=== PATIENT | female | born 1985 | race Caucasian/White ===

== ENCOUNTER 2019-05-29 15:38 | Inpatient (IN) | payer BC, MEDICAID, OTHER ==
[~2019-05-29] VITALS: Ht 167.6 cm; Wt 77.1 kg
[2019-05-29 16:20] LABS: BASOPHILS % (AUTO) 1.9 % (0.0-5.0); EOSINOPHILS % (AUTO) 0.5 % (0.0-8.0); LYMPHOCYTES % (AUTO) 20.5 % (21.0-51.0); MEAN CORPUSCULAR HEMOGLOBIN 18.6 pg (27.0-33.0); MEAN CORPUSCULAR HGB CONC 29.3 g/dL (32.0-36.0); MEAN CORPUSCULAR VOLUME 63.4 fL (79-99); MONOCYTES % (AUTO) 7.1 % (3.0-13.0); NUCLEATED RED BLOOD CELLS 0.2 % (0.0-0.19); PLATELET COUNT (AUTO) 371 K/uL (130-400); RED BLOOD CELL COUNT(AUTO) 2.17 MIL/uL (4.00-5.50); WHITE BLOOD COUNT (AUTO) 9.8 K/uL (4.8-10.8)
[2019-05-29 16:22] LABS: APPEARANCE,URINE Clear (CLEAR); BILIRUBIN,URINE Negative (NEGATIVE); COLOR,URINE Yellow (YELLOW); GLUCOSE, URINE (UA) Negative (NEGATIVE); KETONES,URINE Negative (NEGATIVE); LEUKOCYTE ESTERASE ,URINE Negative (NEGATIVE); NITRATE,URINE Negative (NEGATIVE); OCCULT BLOOD,URINE Large (NEGATIVE); PH,URINE 6.5 (5.0-8.0); PROTEIN,URINE Negative (NEGATIVE); UROBILINOGEN,URINE 0.2 mg/dL (0.2-1.0)
[2019-05-29 16:37] LABS: HEMATOCRIT 13.8 % (36-48); POTASSIUM 3.7 mmol/L (3.5-5.1)
[2019-05-29 16:42] LABS: ALBUMIN 3.8 g/dL (3.5-5.0); BILIRUBIN,TOTAL 0.5 mg/dL (0.2-1.0); TOTAL PROTEIN, SERUM 6.9 g/dL (6.0-8.3)
[2019-05-29 16:52] LABS: BACTERIA,URINE Rare /HPF (None Seen); RBC,URINE 26-50 /HPF (0-1); SQUAMOUS EPITHELIAL CELL,UR Rare /HPF (0-2); WBC,URINE 0-1 /HPF (0-1)
[2019-05-29] MEDS ORDERED: ONDANSETRON HCL 4 MG/2 ML VIAL IVP PRN (19:30)
[2019-05-29] MEDS ORDERED: ACETAMINOPHEN 325 MG TAB PO PRN (19:30)
[2019-05-29] MEDS ORDERED: SODIUM CHLORIDE 0.9% 10 ML VIAL IVP PRN (19:30)
[2019-05-29 19:50] VITALS: BP 146/74
[2019-05-29] MEDS ORDERED: ZOLP10TA2 PO (20:29)
[2019-05-29] MEDS ORDERED: BUPR300T53 PO (20:30)
[2019-05-30] VITALS: BP 130/70
[2019-05-30 04:00] VITALS: BP 131/80
[2019-05-30 06:03] LABS: MEAN CORPUSCULAR HEMOGLOBIN 22.7 pg (27.0-33.0); MEAN CORPUSCULAR HGB CONC 31.5 g/dL (32.0-36.0); MEAN CORPUSCULAR VOLUME 71.9 fL (79-99); NUCLEATED RED BLOOD CELLS 0.2 % (0.0-0.19); PLATELET COUNT (AUTO) 243 K/uL (130-400); RED BLOOD CELL COUNT(AUTO) 2.65 MIL/uL (4.00-5.50); RED CELL DISTRIBUTION WIDTH 25.3 % (11.0-15.5); WHITE BLOOD COUNT (AUTO) 7.1 K/uL (4.8-10.8)
[2019-05-30 06:14] LABS: HEMATOCRIT 19.1 % (36-48)
[2019-05-30 06:23] LABS: BILIRUBIN,TOTAL 0.7 mg/dL (0.2-1.0); CREATININE 0.8 mg/dL (0.5-1.5); PHOSPHORUS 3.6 mg/dL (2.5-4.9); POTASSIUM 4.1 mmol/L (3.5-5.1); TOTAL PROTEIN, SERUM 5.6 g/dL (6.0-8.3)
[2019-05-30 08:00] VITALS: BP 129/84
--- NOTE | 2019-05-30 08:50 | NUR ---
Pretransfusion vitals T99.5, R18, HR70, BP 127/86. Patient explained order for packed red blood cells. Patient reports no reactions to first two units. Educated on possible allergic reactions and to report if any present. Patient verbalized understanding. Blood began transfusing at 70 mL/hour. Patient shows no signs of distress, shortness of breath, abdominal or back pain, rash. Rate changed to 125 mL/hr. Bed low locked. call gore within reach. Mother at bedside.
--- NOTE | 2019-05-30 08:55 | NUR ---
No signs of distress, sob, pain or rash. Patient denies feeling unwell. T98.0, R18, BP134/88, HR81.
--- NOTE | 2019-05-30 09:10 | NUR ---
Denies feeling unwell, sob, pain, rash. T98.6, R18, HR76, BP123/87. Transfusion of PRBC at 125 mL/hr.
[2019-05-30 12:00] VITALS: BP 129/74
[2019-05-30 13:33] LABS: INR 0.95 (0.85-1.15); PARTIAL THROMBOPLASTIN TIME 22.3 SEC (26.3-35.5); PROTHROMBIN TIME 9.8 SEC (9.6-11.6)
--- NOTE | 2019-05-30 13:49 | NUR ---
DC PLAN PER PATIENT, SHE IS INDEPENDENT, LIVES WITH HER SON, NO PROVIDER, NO EQUIPMENT, AND FEELS SAFE TO RETURN HOME. Addendum: 05/30/19 at 1350 by JENNIFER DUFF RN CM Amended: Links added.
[2019-05-30 16:00] VITALS: BP 132/84
--- NOTE | 2019-05-30 16:09 | NUR ---
Called Dr. Thorne on mobile after attempt to reach by pager. Per Dr. Thorne, stated patient was followed outpatient with Dr. Rausch, and that he should be consulted. REceived permission to change consult order from Erendira Muñoz NP for [facility] to Dr. Rausch. Notified Dr. Rausch and he stated he would check records as may be unassigned patient or drop in. Office called back to say patient was unassigned and would need to be seen by consulted physician. Notified Erendira Muñoz NP, stated to call Dr. Thorne regarding consult.
--- NOTE | 2019-05-30 16:31 | NUR ---
Per Dr. Thorne, keep NPO for possible D&C 05/31/19. Received order for control 135 mg, PO Q8h. Notified Erendira Muñoz NP.
[2019-05-30] MEDS: PHYTONADIONE 10 MG/1 ML AMP IM SCH (18:21)
[2019-05-30] MEDS ORDERED: PHARMACY COMMUNICATION MISC SCH (19:45)
[2019-05-30 20:00] VITALS: BP 140/93
[2019-05-30] MEDS: NORETHINDRONE-ETHINYL ESTRAD 1 TABLET PO SCH (20:00)
--- NOTE | 2019-05-30 21:00 | NUR ---
paged Dr. Thorne OBGYN about patient's need to speak with somebody about dilation and curretage that he was going to do on 05/31/19. Had patient speak with him on the phone. Patient claims doctor is rude and refuses to take control necon and dilation and curretage procedure. refusal for treatment signed. Bandar Padilla also called and made aware of the situation.
--- NOTE | 2019-05-30 21:00 | NUR ---
mine engineering supervisor Chana called and made aware of patient wanting another OBGYN doctor who will practice the Dilation and Curratage for her. Top Taper Machine explained that patient needs to find her own SEISMIC PLOTTER doctor who will practice the D&C. Will find a list of doctors and give to the patient.
[2019-05-31] VITALS (21 sets, daily range): BP systolic 119–148; BP diastolic 66–93
[2019-05-31 00:46] LABS: HEMATOCRIT 21.9 % (36-48)
--- NOTE | 2019-05-31 02:18 | NUR ---
gave patient a list of OBGYN's that work in this hospital and their office numbers. explained that she has to obtain her own OBGYN doctor and appointment as per clerical warehouseman order ms. ramos. patient verbalizes that she will speak with her primary MD which is Doctor Farr about the situation.
[2019-05-31] MEDS: NORETHINDRONE-ETHINYL ESTRAD 1 TABLET PO SCH ×2 (04:00→19:26)
[2019-05-31 05:09] LABS: BASOPHILS % (AUTO) 1.8 % (0.0-5.0); EOSINOPHILS % (AUTO) 1.8 % (0.0-8.0); HEMATOCRIT 21.9 % (36-48); LYMPHOCYTES % (AUTO) 26.6 % (21.0-51.0); MEAN CORPUSCULAR HEMOGLOBIN 23.4 pg (27.0-33.0); MEAN CORPUSCULAR VOLUME 73.3 fL (79-99); MONOCYTES % (AUTO) 9.1 % (3.0-13.0); NEUTROPHILS % (AUTO) 60.7 % (40.0-77.0); NUCLEATED RED BLOOD CELLS 0.2 % (0.0-0.19); PLATELET COUNT (AUTO) 224 K/uL (130-400); RED BLOOD CELL COUNT(AUTO) 2.99 MIL/uL (4.00-5.50)
[2019-05-31 05:45] LABS: CREATININE 0.8 mg/dL (0.5-1.5); POTASSIUM 3.9 mmol/L (3.5-5.1)
--- NOTE | 2019-05-31 05:55 | NUR ---
paged [facility] Bandar Marshall about patient's Hemoglobin 7.0 and Hematocrit 21.9. He did not give any new orders.
[2019-05-31 06:13] LABS: % IRON SATURATION 3.9 % (22-44)
[2019-05-31 06:59] LABS: HEMATOCRIT 22.4 % (36-48)
--- NOTE | 2019-05-31 09:56 | NUR ---
Per Phyllis Shannon RN [facility], patient had reservations regarding taking control and possible D&C for 05/31/[address] Thorne explain treatment plan. Nurse called Dr. Thorne, explaining patient's concerns, physician spoke with patient over phone and hung up on patient. Patient stated she did not want him on her case and stated she would contact Dr. Farr to ask his advice. Patient stated she wanted to go home, nurse educated that if bleeding continues, she may reach a critical situation without medical attention. I notified Avril Rogers NP with [facility] of overnight events. Consult placed for Dr. Rabago today. Family notified of change in OBGYN consultation. Pending call back from Dr. Rabago.
--- NOTE | 2019-05-31 10:11 | NUR ---
Notified Dr. Chin of consult, current hemoglobin levels, active bleeding, 14 saturated pads yesterday in 24 hours and 2 saturated pads this morning since 7:[address] Chin, will come to see patient and prepare for D&C.
--- NOTE | 2019-05-31 10:12 | NUR ---
Patient and family notified of treatment plan and of new consultation.
--- NOTE | 2019-05-31 11:27 | NUR ---
Dr. Rabago explained treatment plan, performed vaginal exam with nurse as witness. Patient educated that D&C will clean vaginal wall and assist with bleeding. marine oil terminal superintendent plan recommended was for hysterectomy at a later time. Patient's concerns regarding control addressed, stating it takes time to be therapeutic. Patient agreed to proceed with D&C today. Consent prepared, patient to bath.
[2019-05-31 13:36] LABS: HEMATOCRIT 24.4 % (36-48)
[2019-05-31] MEDS ORDERED: IRON SUCROSE COMPLEX 400 MG in SODIUM CHLORIDE 0.9% 250 ML IV SCH (14:15)
[2019-05-31] MEDS ORDERED: MIDAZOLAM HCL 1 MG/ML 2ML VIAL ONE (16:00)
[2019-05-31] MEDS ORDERED: LIDOCAINE PF 2% 5ML ABBOJECT ONE (16:00)
[2019-05-31] MEDS ORDERED: PROPOFOL 10 MG/ML 20ML VIAL IV ONE (16:00)
[2019-05-31] MEDS ORDERED: ONDANSETRON HCL 4 MG/2 ML VIAL ONE (16:01)
[2019-05-31] MEDS ORDERED: FENTANYL CITRATE PF 50 MCG/1 ML 2ML VIAL ONE ×2 (16:01→16:55)
[2019-05-31] MEDS ORDERED: BISACODYL 10 MG SUPP.RECT RC PRN (16:45)
[2019-05-31] MEDS ORDERED: IBUPROFEN 600 MG TABLET PO PRN (16:45)
[2019-05-31] MEDS ORDERED: SIMETHICONE 80 MG TAB.CHEW PO PRN (16:45)
[2019-05-31] MEDS ORDERED: PROMETHAZINE HCL 25 MG/ML 1ML AMPULE IM PRN (16:45)
[2019-05-31] MEDS ORDERED: DOCUSATE SODIUM 100 MG CAP PO PRN (16:45)
[2019-05-31] MEDS ORDERED: ACETAMINOPHEN-CODEINE 300/30MG TAB PO PRN (16:45)
[2019-05-31] MEDS ORDERED: MEPERIDINE-PF 25 MG/ML SYG ONE (16:48)
[2019-05-31] MEDS ORDERED: MORPHINE SULFATE 4 MG/1ML SYG ONE (17:12)
--- NOTE | 2019-05-31 17:48 | NUR ---
REPORT S/P D&C PATIENT S/P EUA WITH D&C UNDER GENERAL ANESTHESIA BY DR DALLAS B/P 129/76 P56 R 17 T 97.4 SATING 100% ON 2 LITERS NC . PAD IN PLACE GIVEN DEMEROL; AT 1653 , 1705 20MG FENTANYL, 1714 4MG MORPHINE. REPORT RECEIVED FROM EVERT
[2019-05-31] MEDS: SODIUM CHLORIDE 0.9% 1000ML 1,000 ML IV SCH (19:50)
[2019-06-01] VITALS: BP 121/73
[2019-06-01 00:39] LABS: HEMATOCRIT 22.2 % (36-48)
[2019-06-01] MEDS: SODIUM CHLORIDE 0.9% 1000ML 1,000 ML IV SCH ×3 (00:40→16:45)
[2019-06-01] MEDS: NORETHINDRONE-ETHINYL ESTRAD 1 TABLET PO SCH ×2 (03:46→15:28)
[2019-06-01 04:00] VITALS: BP 102/60
[2019-06-01 05:54] LABS: HEMATOCRIT 22.1 % (36-48); MEAN CORPUSCULAR HEMOGLOBIN 23.3 pg (27.0-33.0); MEAN CORPUSCULAR HGB CONC 31.3 g/dL (32.0-36.0); MEAN CORPUSCULAR VOLUME 74.6 fL (79-99); NUCLEATED RED BLOOD CELLS 0.3 % (0.0-0.19); PLATELET COUNT (AUTO) 201 K/uL (130-400); RED BLOOD CELL COUNT(AUTO) 2.96 MIL/uL (4.00-5.50); RED CELL DISTRIBUTION WIDTH 25.2 % (11.0-15.5)
[2019-06-01 07:00] VITALS: BP 102/55
[2019-06-01 11:00] VITALS: BP 112/60
[2019-06-01 13:09] LABS: HEMATOCRIT 22.7 % (36-48)
[2019-06-01] MEDS ORDERED: SODIUM CHLORIDE 0.9% 250 ML IV ONE (13:24)
[2019-06-01] MEDS: PHYTONADIONE 10 MG/1 ML AMP IM SCH ×2 (15:28→15:30)
[2019-06-01 16:00] VITALS: BP 147/71
--- NOTE | 2019-06-01 16:42 | NUR ---
Pt verbalized discomfort and pain on IV site area on the Rt upper arm, IV was removed and new #[address] on Lt upper arm.
[2019-06-01 19:00] VITALS: BP 145/86
[2019-06-02] VITALS: BP 107/54
[2019-06-02] MEDS: NORETHINDRONE-ETHINYL ESTRAD 1 TABLET PO SCH (01:06)
[2019-06-02] MEDS: SODIUM CHLORIDE 0.9% 1000ML 1,000 ML IV SCH (01:11)
[2019-06-02 04:00] VITALS: BP 117/68
[2019-06-02 05:45] LABS: MEAN CORPUSCULAR HEMOGLOBIN 24.4 pg (27.0-33.0); MEAN CORPUSCULAR HGB CONC 31.8 g/dL (32.0-36.0); MEAN CORPUSCULAR VOLUME 76.7 fL (79-99); NUCLEATED RED BLOOD CELLS 0.4 % (0.0-0.19); PLATELET COUNT (AUTO) 222 K/uL (130-400); RED BLOOD CELL COUNT(AUTO) 3.26 MIL/uL (4.00-5.50); WHITE BLOOD COUNT (AUTO) 9.6 K/uL (4.8-10.8)
[2019-06-02 06:19] LABS: CREATININE 0.8 mg/dL (0.5-1.5); POTASSIUM 3.9 mmol/L (3.5-5.1)
[2019-06-02 07:00] VITALS: BP 113/62
--- NOTE | 2019-06-02 08:00 | NUR ---
AM SHIFT ASSESSMENT: FEELING WELL, AND STATES WAS TOLD YESTERDAY SHE WOULD BE DISCHARGED TODAY.
[2019-06-02] MEDS ORDERED: NORETHINDRONE-ETHINYL ESTRAD 1 TABLET PO SCH ×2 (09:00→15:00)
[2019-06-02] MEDS ORDERED: FERR-82 PO (11:53)
[2019-06-02 12:00] VITALS: BP 128/79
--- NOTE | 2019-06-02 15:30 | NUR ---
DISCHARGED NOW USING TEACH BACK, INST AND RX GIVEN AND VERBALIZES UNDERSTANDING. WILL CALL TUESDAY FO JEWEL SORTER APPT. SALINE LOCK REMOVED AND CHIP.DOSE OF NECON GIVEN PRIOR TO DISCHARGE. PRINTED RX FOR NECON GIVEN, DENIES ANY FURTHER BLEEDING.
== END 2019-06-02 15:30 | disposition home or self-care (01) | DRG 744 ==
LOC: EDH 15:38 → OBSVTOIN 18:05 → EDHIP 18:05 → 3CH 18:43
PROVIDERS: ADMIT Internal Medicine Critical Care Medicine; ATTEND Internal Medicine Critical Care Medicine
PROC: 30233N1 Transfusion of Nonautologous Red Blood Cells into Peripheral Vein, Percutaneous Approach (ICD-10-PCS; 2019-05-29)
PROC: 0UDB7ZZ Extraction of Endometrium, Via Natural or Artificial Opening (ICD-10-PCS; principal; 2019-05-31 16:00)
DX: N92.0 Excessive and frequent menstruation with regular cycle (principal); D62 Acute posthemorrhagic anemia; D50.9 Iron deficiency anemia, unspecified; N83.201 Unspecified ovarian cyst, right side; Z90.710 Acquired absence of both cervix and uterus; Z79.899 Other long term (current) drug therapy
CPT/HCPCS: 36415; 36430; 76830; 76857; 80048; 80053; 81001; 81025; 82728; 83540; 83550; 83735; 84100; 85014; 85018; 85025; 85027; 85060; 85610; 85730; 86850; 86900; 86901; 86922; 88305; A4351; G0378; J1756; J2001; J2175; J2250; J2270; J2405; J2550; J2704; J3010; J3430; J7030; P9016

== ENCOUNTER → 2022-04-08 | Outpatient (CLI) | payer BC, MEDICAID ==
[~2022-04-08] MED LIST: BUPR300T53 PO; FERR-82 PO; ZOLP10TA2 PO
== END | disposition home or self-care (01) ==
LOC: RAH 12:33
PROVIDERS: ATTEND Family Medicine
DX: R07.9 Chest pain, unspecified (principal)
CPT/HCPCS: 93306